=== PATIENT | male | born 1935 | race Caucasian/White ===

== ENCOUNTER 2018-07-20 11:12 | Emergency (ER) | payer MEDICARE, OTHER ==
[~2018-07-20] VITALS: Ht 185.4 cm; Wt 80.0 kg
[~2018-07-20 11:12] MED LIST: AMIO200T40 PO; ASPI-1009 PO; ATOR10TA87 PO; CALC-965 PO; CHOL100010 PO; DOCU100C43 PO; HYDR500C18 PO; METO50TA16 PO; UBID30CA11 PO
[2018-07-20 11:35] VITALS: BP 128/60
[2018-07-20] MEDS ORDERED: LIDOcaine 1%/PF 5ML 10 MG/ML VIAL IJ ONE (13:15)
== END 2018-07-20 14:20 | disposition home or self-care (01) ==
LOC: ER 11:13
DX: S61.213A Laceration without foreign body of left middle finger without damage to nail, initial encounter (principal); I25.10 Atherosclerotic heart disease of native coronary artery without angina pectoris; I25.2 Old myocardial infarction; Z95.1 Presence of aortocoronary bypass graft; Z98.890 Other specified postprocedural states; Z79.82 Long term (current) use of aspirin; Z79.899 Other long term (current) drug therapy; W26.0XXA Contact with knife, initial encounter; Y93.G1 Activity, food preparation and clean up; Y92.89 Other specified places as the place of occurrence of the external cause; Y99.8 Other external cause status
CPT/HCPCS: 12001; 99283; A6449; J2001

== ENCOUNTER 2019-01-09 07:08 | Day surgery (SDC) | payer MEDICARE, OTHER ==
[2019-01-09] VITALS (10 sets, daily range): BP systolic 97–124; BP diastolic 52–84
[~2019-01-09] VITALS: Ht 185.4 cm; Wt 85.2 kg
[2019-01-09] MEDS ORDERED: LORazepam 0.5 MG tablet PO ONE (07:40)
[2019-01-09] MEDS ORDERED: diphenhydrAMINE 25mg capsule PO ONE (07:40)
[2019-01-09] MEDS ORDERED: morphine 10mg/ml inj. IV ONE (07:40)
[2019-01-09] MEDS ORDERED: MIDAZolam 5mg/ml 2ml vial IV ONE (07:40)
[2019-01-09] MEDS ORDERED: normal saline 1000ml 1,000 ML IV SCH (07:40)
[2019-01-09] MEDS ORDERED: FURO-150 PO (08:27)
[2019-01-09] MEDS ORDERED: POTA20TA19 PO (08:28)
[2019-01-09] MEDS ORDERED: ALLO300T2 PO (08:29)
[2019-01-09] MEDS ORDERED: AMIO200T40 PO (08:30)
== END 2019-01-09 10:50 | disposition home or self-care (01) ==
LOC: SSTAY O 07:08
PROVIDERS: ATTEND Internal Medicine Cardiovascular Disease
DX: I48.0 Paroxysmal atrial fibrillation (principal); I50.30 Unspecified diastolic (congestive) heart failure; I48.92 Unspecified atrial flutter; I11.0 Hypertensive heart disease with heart failure; E78.49 Other hyperlipidemia; Z85.46 Personal history of malignant neoplasm of prostate; I25.10 Atherosclerotic heart disease of native coronary artery without angina pectoris; Z79.82 Long term (current) use of aspirin; Z79.899 Other long term (current) drug therapy; Z95.1 Presence of aortocoronary bypass graft
CPT/HCPCS: 92960; 93005; 94760; J2250; J2270; J7030

== ENCOUNTER 2019-05-16 13:13 | Inpatient (IN) | payer MEDICARE, OTHER ==
[~2019-05-16] VITALS: Ht 200.7 cm; Wt 81.1 kg
[~2019-05-16 13:13] MED LIST changes: +ALLO300T2 PO; -AMIO200T40 PO; +AMIO200T61 PO; +APIX5TAB3 PO; -ASPI-1009 PO; -CALC-965 PO; -CHOL100010 PO; -DOCU100C43 PO; +FURO-150 PO; +LEVO25TA7 PO; -UBID30CA11 PO
[2019-05-16] MEDS ORDERED: CefTRIAXone 2gm/D5W 50ml 50 ML IV ONE (13:20)
[2019-05-16] MEDS ORDERED: normal saline 1000ML IV soln IV ONE (13:20)
[2019-05-16 13:40] LABS: EOSINOPHILS % (AUTO) 0.1 % (0-6); HEMATOCRIT 37.3 % (42.0-52.0); LYMPHOCYTES # (AUTO) 0.9 X10'3 (1.1-4.8); LYMPHOCYTES % (AUTO) 1.8 % (21-51)
[2019-05-16 13:43] LABS: BASOPHILS # (AUTO) 0.2 X10'3 (0-0.2); BASOPHILS % (AUTO) 0.4 % (0-1); HEMOGLOBIN 11.1 g/dl (14.0-17.9); MEAN CORPUSCULAR HEMOGLOBIN 28.9 PG (27.0-31.0); MEAN CORPUSCULAR HGB CONC 29.6 g/dL (33.0-36.5); MEAN CORPUSCULAR VOLUME 97.3 FL (78-98); MEAN PLATELET VOLUME 16.4 FL (7.4-10.4); MONOCYTES # (AUTO) 0.4 X10'3 (0-0.9); MONOCYTES % (AUTO) 0.7 % (2-12); NEUTROPHILS # (AUTO) 50.8 X10'3 (1.8-7.7); PLATELET COUNT 102 X10'3 (140-440); RED BLOOD COUNT 3.83 X10'6 (4.70-6.10)
[2019-05-16] MEDS ORDERED: acetaminophen 325mg tablet PO ONE (13:50)
[2019-05-16 13:53] LABS: ALANINE AMINOTRANSFERASE 10 U/L (12-78); ALBUMIN 2.9 G/DL (3.4-5.0); ALBUMIN/GLOBULIN RATIO 1.1 (1.1-1.5); ALKALINE PHOSPHATASE 71 IU/L (46-116); ANION GAP 10 (8-16); ASPARTATE AMINO TRANSFERASE 61 U/L (10-37); BILIRUBIN,TOTAL 2.2 MG/DL (0.1-1.0); BLOOD UREA NITROGEN 28 MG/DL (7-18); BUN/CREATININE RATIO 19.4 (5.4-32.0); CALCIUM 7.9 MG/DL (8.5-10.1); CHLORIDE 103 MMOL/L (99-107); CREATININE 1.44 MG/DL (0.60-1.10); GLUCOSE 75 MG/DL (70-104); POTASSIUM 4.5 MMOL/L (3.5-5.1); SODIUM 140 MMOL/L (135-145); TOTAL CARBON DIOXIDE 26.9 MMOL/L (24-32); TOTAL PROTEIN 5.5 G/DL (6.4-8.2); eGFR 47 ML/MIN
[2019-05-16 13:56] LABS: PARTIAL THROMBOPLASTIN TIME 48 SECONDS (22-32)
[2019-05-16 14:00] LABS: MAGNESIUM 1.5 MG/DL (1.5-2.4)
[2019-05-16 14:05] LABS: CLARITY,URINE SLIGHTLY CLOUDY (Clear); COLOR,URINE YELLOW (Yellow); GLUCOSE, URINE NEGATIVE (Neg); KETONES,URINE TRACE mg/dl (Neg); LEUKOCYTE ESTERASE ,URINE NEGATIVE (Neg); NITRITES, URINE NEGATIVE (Neg); OCCULT BLOOD,URINE TRACE-INTACT (Neg); PROTEIN,URINE 30 mg/dl (Neg); UROBILINOGEN,URINE 0.2 E.U/dL (0.2-1.0)
[2019-05-16 14:18] LABS: WHITE BLOOD COUNT 52.4 X10'3 (4.5-11.0)
[2019-05-16 14:21] LABS: PLATELET ESTIMATE DECREASED; TOTAL CELLS COUNTED 100
[2019-05-16 14:22] LABS: ANISOCYTOSIS 3+; GIANT PLATELET FEW; HYPOCHROMASIA 1+; LARGE PLATELETS FEW; POLYCHROMASIA 2+
[2019-05-16 14:23] LABS: ELLIPTOCYTES 1+; TARGET CELLS FEW
[2019-05-16] MEDS ORDERED: vancomycin/NS 1 GM ADD-VANTAGE 250 ML IV ONE (14:25)
[2019-05-16 14:27] LABS: UA COLLECTION TYPE STRAIGHT CATH
[2019-05-16 14:28] LABS: AMORPHOUS URATES 1+; BACTERIA,URINE NONE SEEN /HPF (Neg); MUCUS STRANDS FEW /LPF (Neg); RBC,URINE 0-2 /HPF (0-2); SQUAMOUS EPITHELIAL CELL,UR FEW /LPF (FEW); WBC,URINE 0-4 /HPF (0-4)
[2019-05-16] MEDS ORDERED: normal saline 1000ml 1,000 ML IV STA (15:44)
[2019-05-16] MEDS ORDERED: METO25TA6 PO (15:55)
[2019-05-16] MEDS ORDERED: hydrocortisone sod succ/PF 100mg/2ml inj. IV ONE (16:44)
[2019-05-16] MEDS ORDERED: acetaminophen 325mg tablet PO PRN ×2 (16:45)
[2019-05-16] MEDS ORDERED: sodium phosphate inj. 15 MMOL in dextrose 5%-water 150 ML IV PRN (16:45)
[2019-05-16] MEDS ORDERED: potassium CL 10mEq/100ml bag 100 ML IV PRN (16:45)
[2019-05-16] MEDS ORDERED: sodium phosphate inj. 30 MMOL in dextrose 5%-water 250 ML IV PRN (16:45)
[2019-05-16] MEDS ORDERED: magnesium hydroxide 30ml (MOM) UD suspension PO PRN (16:45)
[2019-05-16] MEDS ORDERED: magnesium 4gm in 100ml NS 100 ML IV PRN (16:45)
[2019-05-16] MEDS ORDERED: magnesium Cl slow-release 64mg tablet PO PRN (16:45)
[2019-05-16] MEDS ORDERED: cefepime 1GM in D5W 50mL 50 ML IV ONE (16:45)
[2019-05-16] MEDS ORDERED: ipratropium/albuterol 3ml nebule NEB PRN (16:45)
[2019-05-16] MEDS ORDERED: ondansetron/PF 4mg/2ml inj IV PRN (16:45)
[2019-05-16] MEDS ORDERED: morphine 4 MG/ML inj SYRINge IV PRN (16:45)
[2019-05-16] MEDS ORDERED: magnesium 2GM in 50ml NS 50 ML IV PRN (16:45)
[2019-05-16] MEDS ORDERED: morphine 2 MG/ML inj. syringe IV PRN (16:45)
[2019-05-16] MEDS ORDERED: Neutra Phos packet PO PRN (16:45)
[2019-05-16] MEDS ORDERED: potassium Cl 20 mEq SR tablet PO PRN ×2 (16:45)
[2019-05-16] MEDS ORDERED: NORepinephrine 8mg/ 250ml NS 250 ML IV SCH (17:05)
[2019-05-16] MEDS: normal saline 1000ml 1,000 ML IV SCH ×2 (17:08→19:23)
[2019-05-16] MEDS: NORepinephrine 8mg/ 250ml NS 250 ML IV SCH ×2 (17:21→19:33)
[2019-05-16] MEDS ORDERED: vancomycin inj 500 MG in normal saline 100ml IV soln 100 ML IV ONE (17:50)
--- NOTE | 2019-05-16 17:54 | NUR ---
RECEIVED AN ORDER FOR MUKESH LLANOS FROM DR. CARRANZA.
--- NOTE | 2019-05-16 18:06 | NUR ---
patient transferred to 2013 in no apparent distress. Oriented x3. hooked up to monitor. on 2mcg of levophed and hypotensive. Levophed being titrated up. Skin check performed, foam pad placed to coccyx and patient positioned in bed.
[2019-05-16 18:30] VITALS: BP 90/40
[2019-05-16 19:00] VITALS: BP 102/43
[2019-05-16] MEDS: hydrocortisone sod succ/PF 100mg/2ml inj. IV SCH (19:33)
[2019-05-16] MEDS: heparin, porcine 5000 units/ml vial SQ SCH (19:34)
[2019-05-16] MEDS: famotidine/PF 10 mg/ml inj IV SCH (19:34)
[2019-05-16] MEDS: docusate sod 100mg capsule PO SCH (19:35)
[2019-05-16 20:00] VITALS: BP 109/47
[2019-05-16 21:00] VITALS: BP 119/48
[2019-05-16 22:00] VITALS: BP 111/46
[2019-05-16 23:00] VITALS: BP 115/40
[2019-05-16] MEDS: cefepime 1GM in D5W 50mL 50 ML IV SCH (23:46)
[2019-05-17] VITALS (24 sets, daily range): BP systolic 101–130; BP diastolic 42–65
[2019-05-17] MEDS: hydrocortisone sod succ/PF 100mg/2ml inj. IV SCH ×4 (01:15→21:11)
[2019-05-17 01:45] LABS: EOSINOPHILS % (AUTO) 0 % (0-6); HEMOGLOBIN 11.2 g/dl (14.0-17.9); RED CELL DISTRIBUTION WIDTH 21.4 % (11.5-14.5)
[2019-05-17 02:11] LABS: ALANINE AMINOTRANSFERASE 12 U/L (12-78); ALBUMIN 2.6 G/DL (3.4-5.0); ALKALINE PHOSPHATASE 60 IU/L (46-116); ANION GAP 11 (8-16); ASPARTATE AMINO TRANSFERASE 66 U/L (10-37); BILIRUBIN,TOTAL 0.9 MG/DL (0.1-1.0); BLOOD UREA NITROGEN 37 MG/DL (7-18); BUN/CREATININE RATIO 22.3 (5.4-32.0); CALCIUM 7.3 MG/DL (8.5-10.1); CHLORIDE 107 MMOL/L (99-107); CREATININE 1.66 MG/DL (0.60-1.10); GLUCOSE 122 MG/DL (70-104); MAGNESIUM 1.8 MG/DL (1.5-2.4); PHOSPHORUS 5.4 MG/DL (2.3-4.5); POTASSIUM 4.3 MMOL/L (3.5-5.1); SODIUM 141 MMOL/L (135-145); TOTAL CARBON DIOXIDE 22.9 MMOL/L (24-32); TOTAL PROTEIN 5.1 G/DL (6.4-8.2); eGFR 40 ML/MIN
--- NOTE | 2019-05-17 02:40 | NUR ---
1830..Patient in room CICU 2013. I have received report from judah WATKINS and had the opportunity to ask questions and assume patient care.
--- NOTE | 2019-05-17 02:41 | NUR ---
1900..Per MD order rebolledo cath placed x1 attempt with immediate return pink/orange urine. No difficulties with rebolledo cath placement. Family at bedside.
--- NOTE | 2019-05-17 02:42 | NUR ---
2000..Assessment as noted, denies any complaints, resting quietly.
--- NOTE | 2019-05-17 02:43 | NUR ---
0000..Continues to rest quietly, no changes noted, weaning levophed as tolerated.
[2019-05-17 03:16] LABS: BASOPHILS # (AUTO) 0.2 X10'3 (0-0.2); BASOPHILS % (AUTO) 0.2 % (0-1); HEMATOCRIT 39.1 % (42.0-52.0); LYMPHOCYTES # (AUTO) 0.6 X10'3 (1.1-4.8); LYMPHOCYTES % (AUTO) 0.8 % (21-51); MEAN CORPUSCULAR HEMOGLOBIN 28.1 PG (27.0-31.0); MEAN CORPUSCULAR HGB CONC 28.7 g/dL (33.0-36.5); MEAN CORPUSCULAR VOLUME 97.7 FL (78-98); MEAN PLATELET VOLUME 13.9 FL (7.4-10.4); MONOCYTES # (AUTO) 0.8 X10'3 (0-0.9); MONOCYTES % (AUTO) 1.1 % (2-12); NEUTROPHILS # (AUTO) 74.3 X10'3 (1.8-7.7); NEUTROPHILS % (AUTO) 97.9 % (42-75); PLATELET COUNT 88 X10'3 (140-440); RED BLOOD COUNT 4.01 X10'6 (4.70-6.10)
[2019-05-17 03:20] LABS: WHITE BLOOD COUNT 75.9 X10'3 (4.5-11.0)
[2019-05-17 04:18] LABS: TOTAL CELLS COUNTED 100
[2019-05-17 04:20] LABS: ANISOCYTOSIS 3+; PLATELET ESTIMATE DECREASED
[2019-05-17 04:22] LABS: HYPOCHROMASIA 2+; POLYCHROMASIA 1+
[2019-05-17 04:23] LABS: ELLIPTOCYTES 2+
[2019-05-17 04:24] LABS: GIANT PLATELET FEW; LARGE PLATELETS MODERATE
--- NOTE | 2019-05-17 05:14 | NUR ---
0400..Weaning levophed as tolerated, states feeling better, no other changes noted.
--- NOTE | 2019-05-17 06:17 | NUR ---
0615..Problems reprioritized. Patient report given, questions answered & plan of care reviewed with Mary Jo WATKINS.
[2019-05-17] MEDS: docusate sod 100mg capsule PO SCH ×2 (08:00→21:11)
[2019-05-17] MEDS: normal saline 1000ml 1,000 ML IV SCH ×2 (08:28→22:51)
[2019-05-17] MEDS: cefepime 1GM in D5W 50mL 50 ML IV SCH (08:28)
[2019-05-17] MEDS: vancomycin/NS 1 GM ADD-VANTAGE 250 ML IV SCH (08:33)
[2019-05-17] MEDS: famotidine/PF 10 mg/ml inj IV SCH (08:41)
[2019-05-17] MEDS: heparin, porcine 5000 units/ml vial SQ SCH ×2 (08:48→21:12)
--- NOTE | 2019-05-17 10:17 | NUR ---
Initial: Pt admit with septic shock and AMS with hx polycythemia rub verjosephine. Unable to provide protein education at this time r/t current mentation. Pt currently on heart healthy diet with documented 25/50/100% PO intake first meal. Noted that pt documented with low BMI for geriatric age at 19.0. Per height hx patient is not 79" tall but is 73-74"; updated BMI is appropriate at 22.5. LBM 05/17. No edema. Will continue to follow and monitor need for ONS. Recommendations: 1) Continue with heart healthy diet 2) Monitor need for ONS 3) Wt per rx Addendum: 05/17/19 at [address] Amended: Links added.
--- NOTE | 2019-05-17 11:59 | NUR ---
Report given to receiving RN
--- NOTE | 2019-05-17 12:25 | NUR ---
Patient in room [facility] 2013. I have received report from JUNE Rand and had the opportunity to ask questions and assume patient care. Addendum: 05/17/19 at 1237 by Roselia Carrion RN agree with julián WATKINScook chill technician
--- NOTE | 2019-05-17 15:17 | NUR ---
pt has whitish area inbetween buttocks, pt states he has had it for months, appears to be healing eschar. pictures taken. pt also has wounds on right ear post surgical
[2019-05-17] MEDS: cefepime inj. 1 GM in dextrose 5%-water 50ml 50 ML IV SCH (15:41)
--- NOTE | 2019-05-17 15:49 | NUR ---
amaury foley dc'd
[2019-05-17] MEDS ORDERED: cefepime inj. 1 GM in dextrose 5%-water 50ml 50 ML IV SCH (16:00)
--- NOTE | 2019-05-17 18:23 | NUR ---
Problems reprioritized. Patient report given, questions answered & plan of care reviewed with JUNE BURKETT.
[2019-05-17] MEDS: lactobacillus rhamnosus 10,000 MMU CELLS/CAPSULE PO SCH (21:10)
[2019-05-17] MEDS: famotidine 20mg tablet PO SCH (21:10)
[2019-05-18] VITALS (24 sets, daily range): BP systolic 95–136; BP diastolic 45–67
[2019-05-18] MEDS: cefepime inj. 1 GM in dextrose 5%-water 50ml 50 ML IV SCH ×3 (00:34→16:41)
[2019-05-18] MEDS: hydrocortisone sod succ/PF 100mg/2ml inj. IV SCH ×3 (02:59→20:00)
[2019-05-18 03:40] LABS: ALANINE AMINOTRANSFERASE 10 U/L (12-78); ALBUMIN 2.3 G/DL (3.4-5.0); ALKALINE PHOSPHATASE 47 IU/L (46-116); ANION GAP 13 (8-16); ASPARTATE AMINO TRANSFERASE 12 U/L (10-37); BILIRUBIN,TOTAL 0.6 MG/DL (0.1-1.0); BLOOD UREA NITROGEN 48 MG/DL (7-18); BUN/CREATININE RATIO 36.9 (5.4-32.0); CALCIUM 7.5 MG/DL (8.5-10.1); CHLORIDE 106 MMOL/L (99-107); GLUCOSE 130 MG/DL (70-104); POTASSIUM 4.2 MMOL/L (3.5-5.1); SODIUM 142 MMOL/L (135-145); TOTAL CARBON DIOXIDE 22.8 MMOL/L (24-32); TOTAL PROTEIN 4.6 G/DL (6.4-8.2); eGFR 52 ML/MIN
--- NOTE | 2019-05-18 06:30 | NUR ---
Patient in room CICU 2013. I have received report from Kurt WATKINS and had the opportunity to ask questions and assume patient care. Patient lying in bed with eyes closed, on room air sating 95-98%, vital signs stable no signs of distress will continue to monitor
[2019-05-18 06:31] LABS: EOSINOPHILS # (AUTO) 0.1 X10'3 (0-0.9); EOSINOPHILS % (AUTO) 0.1 % (0-6); LYMPHOCYTES # (AUTO) 0.5 X10'3 (1.1-4.8); LYMPHOCYTES % (AUTO) 0.8 % (21-51); RED BLOOD COUNT 3.79 X10'6 (4.70-6.10)
[2019-05-18 06:34] LABS: BASOPHILS # (AUTO) 0.5 X10'3 (0-0.2); BASOPHILS % (AUTO) 0.8 % (0-1); HEMATOCRIT 36.2 % (42.0-52.0); HEMOGLOBIN 10.7 g/dl (14.0-17.9); MEAN CORPUSCULAR HEMOGLOBIN 28.3 PG (27.0-31.0); MEAN CORPUSCULAR HGB CONC 29.6 g/dL (33.0-36.5); MEAN CORPUSCULAR VOLUME 95.6 FL (78-98); MEAN PLATELET VOLUME 13.9 FL (7.4-10.4); MONOCYTES # (AUTO) 0.4 X10'3 (0-0.9); MONOCYTES % (AUTO) 0.6 % (2-12); NEUTROPHILS # (AUTO) 62.9 X10'3 (1.8-7.7); NEUTROPHILS % (AUTO) 97.7 % (42-75); RED CELL DISTRIBUTION WIDTH 21.6 % (11.5-14.5)
[2019-05-18 06:44] LABS: PLATELET COUNT 69 X10'3 (140-440)
[2019-05-18 06:47] LABS: WHITE BLOOD COUNT 64.4 X10'3 (4.5-11.0)
[2019-05-18] MEDS: heparin, porcine 5000 units/ml vial SQ SCH ×2 (08:00→19:45)
[2019-05-18] MEDS: docusate sod 100mg capsule PO SCH ×2 (08:00→20:00)
[2019-05-18] MEDS: lactobacillus rhamnosus 10,000 MMU CELLS/CAPSULE PO SCH ×2 (08:01→20:00)
[2019-05-18 08:02] LABS: TOTAL CELLS COUNTED 100
[2019-05-18] MEDS: vancomycin/NS 1 GM ADD-VANTAGE 250 ML IV SCH (08:02)
[2019-05-18] MEDS: famotidine 20mg tablet PO SCH ×2 (08:02→20:00)
[2019-05-18 08:03] LABS: ANISOCYTOSIS 3+; PLATELET ESTIMATE DECREASED
[2019-05-18 08:04] LABS: ELLIPTOCYTES 3+; GIANT PLATELET FEW; HYPERSEGMENTED NEUTROPHILS 1+; LARGE PLATELETS MODERATE; POLYCHROMASIA 1+
[2019-05-18 08:05] LABS: ACANTHOCYTES 1+; TOXIC GRANULATION 2+
--- NOTE | 2019-05-18 08:15 | NUR ---
discussed with VERONICA Corrales about patients platelet count, stated to hold the heparin dose this morning
[2019-05-18] MEDS: normal saline 1000ml 1,000 ML IV SCH (14:21)
--- NOTE | 2019-05-18 16:30 | NUR ---
Patients daughter came up, updated her on her fathers status and roughly how many days he will be here based on the physicians assessment.
[2019-05-18] MEDS: NORepinephrine 8mg/ 250ml NS 250 ML IV SCH (16:45)
[2019-05-18] MEDS ORDERED: bisacodyl 10mg suppository rectal RC PRN (16:45)
--- NOTE | 2019-05-18 18:17 | NUR ---
Patient in room CICU 2011. I have received report from Beatris and had the opportunity to ask questions and assume patient care.
--- NOTE | 2019-05-18 18:17 | NUR ---
Problems reprioritized. Patient report given, questions answered & plan of care reviewed with Elina WATKINS.
--- NOTE | 2019-05-18 18:41 | NUR ---
Pt transferred to room 2012 via bed.
[2019-05-19] VITALS (18 sets, daily range): BP systolic 99–134; BP diastolic 45–70
[2019-05-19] MEDS: cefepime inj. 1 GM in dextrose 5%-water 50ml 50 ML IV SCH ×3 (00:02→16:32)
[2019-05-19 02:19] LABS: ANION GAP 8 (8-16); BLOOD UREA NITROGEN 47 MG/DL (7-18); BUN/CREATININE RATIO 38.2 (5.4-32.0); CHLORIDE 110 MMOL/L (99-107); CREATININE 1.23 MG/DL (0.60-1.10); GLUCOSE 126 MG/DL (70-104); SODIUM 141 MMOL/L (135-145); TOTAL CARBON DIOXIDE 22.7 MMOL/L (24-32)
[2019-05-19 02:20] LABS: ALANINE AMINOTRANSFERASE 7 U/L (12-78); ALBUMIN 2.1 G/DL (3.4-5.0); ALKALINE PHOSPHATASE 44 IU/L (46-116); ASPARTATE AMINO TRANSFERASE 7 U/L (10-37); BILIRUBIN,TOTAL 0.4 MG/DL (0.1-1.0); CALCIUM 7.4 MG/DL (8.5-10.1); MAGNESIUM 2.1 MG/DL (1.5-2.4); PHOSPHORUS 3.4 MG/DL (2.3-4.5); TOTAL PROTEIN 4.3 G/DL (6.4-8.2); eGFR 56 ML/MIN
[2019-05-19 02:21] LABS: BASOPHILS # (AUTO) 0.1 X10'3 (0-0.2); EOSINOPHILS % (AUTO) 0 % (0-6); LYMPHOCYTES # (AUTO) 0.3 X10'3 (1.1-4.8); MEAN CORPUSCULAR HGB CONC 29.2 g/dL (33.0-36.5)
[2019-05-19 02:27] LABS: BASOPHILS % (AUTO) 0.2 % (0-1); HEMATOCRIT 33.7 % (42.0-52.0); HEMOGLOBIN 9.9 g/dl (14.0-17.9); LYMPHOCYTES % (AUTO) 0.6 % (21-51); MEAN CORPUSCULAR HEMOGLOBIN 28.4 PG (27.0-31.0); MEAN CORPUSCULAR VOLUME 97.3 FL (78-98); MEAN PLATELET VOLUME 11.5 FL (7.4-10.4); MONOCYTES # (AUTO) 0.7 X10'3 (0-0.9); MONOCYTES % (AUTO) 1.2 % (2-12); NEUTROPHILS # (AUTO) 53.5 X10'3 (1.8-7.7); RED BLOOD COUNT 3.47 X10'6 (4.70-6.10); RED CELL DISTRIBUTION WIDTH 22.1 % (11.5-14.5)
[2019-05-19] MEDS: normal saline 1000ml 1,000 ML IV SCH (05:06)
[2019-05-19 05:59] LABS: PLATELET COUNT 62 X10'3 (140-440)
[2019-05-19 06:02] LABS: WHITE BLOOD COUNT 54.7 X10'3 (4.5-11.0)
--- NOTE | 2019-05-19 06:02 | NUR ---
Notified primary RN, A Forcen, regarding patient's critical WBC with AM labs.
[2019-05-19 06:04] LABS: ACANTHOCYTES 1+; ANISOCYTOSIS 3+; ELLIPTOCYTES 3+; PLATELET ESTIMATE DECREASED; TOTAL CELLS COUNTED 100
[2019-05-19 06:05] LABS: LARGE PLATELETS MODERATE; TOXIC GRANULATION 2+
[2019-05-19 06:06] LABS: POIKILOCYTOSIS 1+
--- NOTE | 2019-05-19 06:32 | NUR ---
Patient in room CICU 2011. I have received report from Elina WATKINS and had the opportunity to ask questions and assume patient care.
[2019-05-19] MEDS: famotidine 20mg tablet PO SCH ×2 (07:27→20:41)
[2019-05-19] MEDS: lactobacillus rhamnosus 10,000 MMU CELLS/CAPSULE PO SCH ×2 (07:27→20:41)
[2019-05-19] MEDS: hydrocortisone sod succ/PF 100mg/2ml inj. IV SCH ×2 (07:27→20:40)
[2019-05-19] MEDS: docusate sod 100mg capsule PO SCH ×2 (07:29→20:40)
[2019-05-19] MEDS: vancomycin/NS 1 GM ADD-VANTAGE 250 ML IV SCH (08:32)
--- NOTE | 2019-05-19 10:35 | NUR ---
Dr. Shook rounded on patient with multidisciplinary team. Orders were given to transfer patient to medical unit without telemetry. DC central line and stop fluids of NS at 75 ml/hr.
--- NOTE | 2019-05-19 13:07 | NUR ---
PRESSURE ULCER EDUCATION: DEFINITION: A pressure ulcer is an area of skin that breaks down when you stay in one position too long. The constant pressure against the skin reduces the blood flow to that area and the affected tissue dies. CAUSES: "Being bedridden or in a wheelchair "Fragile skin "Having a chronic condition, such as diabetes or vascular disease "Inability to move certain parts of your body without assistance "Older age "Incontinence of urine or stool SYMPTOMS: "A reddened area that DOES NOT turn white when pressed on - this can be the beginning of a pressure ulcer "A blister, deep sore or a crater - these can be advanced pressure ulcers FIRST AID: "Relieve the pressure on this area "Keep the area clean and dry "Call your primary doctor if you see any of the above symptoms "DO NOT massage the area "DO NOT use a donut shaped or ring shaped pillow- these actually interfere with the blood flow and cause complications PREVENTION: "Check for pressure ulcers everyday "Change position at least every two hours to relieve pressure "Use items that help relieve pressure- pillows, sheepskin, foam padding, and powders. "Keep skin clean and dry "Eat healthy well balanced meals "Exercise daily IF YOU SEE ANY OF THESE SYMPTOMS WHILE IN THE HOSPITAL - TELL YOUR NURSE IMMEDIATELY. IF YOU SEE ANY OF THESE SYMPTOMS WHILE AT HOME OR HAVE ANY QUESTIONS OR CONCERNS ABOUT PRESSURE ULCERS - CALL YOUR PRIMARY DOCTOR IMMEDIATELY. Addendum: 05/19/19 at 1307 by Goldy Cornejo RN Amended: Links added.
[2019-05-19] MEDS: amiodarone 200mg tablet PO SCH (13:47)
[2019-05-19] MEDS: allopurinol 300 MG tablet PO SCH (13:51)
[2019-05-19] MEDS: furosemide 20MG tablet PO SCH (13:51)
--- NOTE | 2019-05-19 14:15 | NUR ---
Report received from [facility] RN, Toy.
--- NOTE | 2019-05-19 14:30 | NUR ---
Report given to Yin RN, Surgical. Patient to be transferred to [facility] with belongings.
--- NOTE | 2019-05-19 14:40 | NUR ---
[facility]
--- NOTE | 2019-05-19 18:35 | NUR ---
Problems reprioritized. Patient report given, questions answered & plan of care reviewed with JUNE Wade & JUNE Delacruz.
--- NOTE | 2019-05-19 19:14 | NUR ---
Patient in room [facility] 349. I have received report from Yin WATKINS and had the opportunity to ask questions and assume patient care.
--- NOTE | 2019-05-19 20:09 | NUR ---
PAGER ID: [phone] MESSAGE: [id number] Timmy Caldwell. Dr. Leong restarted Eliquis for tonight, Plt count 62. Is it okay to give? Sheri WATKINS [phone]
[2019-05-19] MEDS: metoprolol tartrate 25mg tablet PO SCH (20:41)
[2019-05-19] MEDS: apixaban 5mg tablet PO SCH (20:41)
[2019-05-19] MEDS: atorvastatin 10mg tablet PO SCH (20:41)
[2019-05-20] VITALS: BP 117/55
[2019-05-20] MEDS: cefepime inj. 1 GM in dextrose 5%-water 50ml 50 ML IV SCH ×3 (00:16→15:18)
--- NOTE | 2019-05-20 06:31 | NUR ---
Problems reprioritized. Patient report given, questions answered & plan of care reviewed with Nanci WATKINS.
[2019-05-20 07:28] VITALS: BP 101/68
[2019-05-20] MEDS ORDERED: VANCOMYCIN LEVEL IV ONE (07:30)
[2019-05-20] MEDS: docusate sod 100mg capsule PO SCH ×2 (07:45→20:47)
[2019-05-20] MEDS: allopurinol 300 MG tablet PO SCH (07:45)
[2019-05-20] MEDS: amiodarone 200mg tablet PO SCH ×2 (07:46→11:57)
[2019-05-20] MEDS: lactobacillus rhamnosus 10,000 MMU CELLS/CAPSULE PO SCH ×2 (07:46→20:47)
[2019-05-20] MEDS: metoprolol tartrate 25mg tablet PO SCH ×2 (07:48→20:47)
[2019-05-20] MEDS: apixaban 5mg tablet PO SCH ×2 (07:49→20:52)
[2019-05-20] MEDS: famotidine 20mg tablet PO SCH ×2 (07:50→20:47)
[2019-05-20] MEDS: levoTHYROXINE 25mcg tablet PO SCH (07:51)
[2019-05-20] MEDS: furosemide 20MG tablet PO SCH (07:52)
[2019-05-20] MEDS: hydrocortisone sod succ/PF 100mg/2ml inj. IV SCH (08:10)
[2019-05-20 09:16] LABS: BASOPHILS # (AUTO) 0.2 X10'3 (0-0.2); BASOPHILS % (AUTO) 0.4 % (0-1); EOSINOPHILS # (AUTO) 0.5 X10'3 (0-0.9); MONOCYTES # (AUTO) 0.2 X10'3 (0-0.9)
[2019-05-20 09:21] LABS: EOSINOPHILS % (AUTO) 1.2 % (0-6); HEMOGLOBIN 10.9 g/dl (14.0-17.9); LYMPHOCYTES # (AUTO) 0.5 X10'3 (1.1-4.8); LYMPHOCYTES % (AUTO) 1.2 % (21-51); MEAN CORPUSCULAR HEMOGLOBIN 28.6 PG (27.0-31.0); MEAN CORPUSCULAR HGB CONC 28.6 g/dL (33.0-36.5); MEAN CORPUSCULAR VOLUME 99.8 FL (78-98); MONOCYTES % (AUTO) 0.4 % (2-12); NEUTROPHILS # (AUTO) 40.1 X10'3 (1.8-7.7); NEUTROPHILS % (AUTO) 96.8 % (42-75); RED BLOOD COUNT 3.81 X10'6 (4.70-6.10); RED CELL DISTRIBUTION WIDTH 21.4 % (11.5-14.5)
[2019-05-20 09:23] LABS: ALANINE AMINOTRANSFERASE 15 U/L (12-78); ALBUMIN 2.5 G/DL (3.4-5.0); ALBUMIN/GLOBULIN RATIO 1.1 (1.1-1.5); ALKALINE PHOSPHATASE 48 IU/L (46-116); ASPARTATE AMINO TRANSFERASE 9 U/L (10-37); BILIRUBIN,TOTAL 0.4 MG/DL (0.1-1.0); BLOOD UREA NITROGEN 37 MG/DL (7-18); BUN/CREATININE RATIO 34.3 (5.4-32.0); CALCIUM 7.9 MG/DL (8.5-10.1); CHLORIDE 111 MMOL/L (99-107); CREATININE 1.08 MG/DL (0.60-1.10); GLUCOSE 122 MG/DL (70-104); PHOSPHORUS 2.2 MG/DL (2.3-4.5); POTASSIUM 3.6 MMOL/L (3.5-5.1); TOTAL CARBON DIOXIDE 26.1 MMOL/L (24-32); TOTAL PROTEIN 4.8 G/DL (6.4-8.2); eGFR 65 ML/MIN
[2019-05-20 09:34] LABS: ANION GAP 5 (8-16); SODIUM 142 MMOL/L (135-145); VANCOMYCIN,TROUGH 9.5 UG/ML (6.0-14.0)
[2019-05-20] MEDS ORDERED: vancomycin/NS 1 GM ADD-VANTAGE 250 ML IV SCH (10:00)
[2019-05-20 10:37] LABS: PLATELET COUNT 66 X10'3 (140-440)
[2019-05-20 10:42] LABS: WHITE BLOOD COUNT 41.4 X10'3 (4.5-11.0)
[2019-05-20 10:52] LABS: PLATELET ESTIMATE DECREASED; TOTAL CELLS COUNTED 100
[2019-05-20 10:53] LABS: ACANTHOCYTES 1+; ANISOCYTOSIS 3+; ELLIPTOCYTES 3+; POIKILOCYTOSIS 1+; TOXIC GRANULATION 2+
[2019-05-20 10:54] LABS: HYPERSEGMENTED NEUTROPHILS FEW; TOXIC VACUOLATION FEW
--- NOTE | 2019-05-20 11:00 | NUR ---
Wound consult: Per 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 Emiliano 22. Pt currently on heart healthy diet with documented 75-100% PO intake meeting nutrient needs. No further intervention warranted at this time. [facility] 05/19. Will continue to follow. Recommendations: 1) Continue with heart healthy diet 2) Monitor need for ONS 3) Wt per rx Addendum: 05/20/19 at [address] Amended: Links added.
[2019-05-20 11:44] VITALS: BP 115/55
--- NOTE | 2019-05-20 18:22 | NUR ---
Received report from JUNE Christine. Patient is awake and alert on room air, in no apparent distress. Call light and items of frequent use within reach. Visitor at bedside. Will continue to monitor.
--- NOTE | 2019-05-20 18:51 | NUR ---
Report given to [facility] nurse.
[2019-05-20 20:00] VITALS: BP 113/60
[2019-05-20] MEDS: atorvastatin 10mg tablet PO SCH (20:46)
[2019-05-21] VITALS: BP 106/48
[2019-05-21] MEDS: cefepime inj. 1 GM in dextrose 5%-water 50ml 50 ML IV SCH ×2 (00:39→07:34)
[2019-05-21 05:28] LABS: ALANINE AMINOTRANSFERASE 17 U/L (12-78); ALBUMIN 2.5 G/DL (3.4-5.0); ALBUMIN/GLOBULIN RATIO 1.2 (1.1-1.5); ALKALINE PHOSPHATASE 50 IU/L (46-116); ANION GAP 10 (8-16); ASPARTATE AMINO TRANSFERASE 11 U/L (10-37); BILIRUBIN,TOTAL 0.4 MG/DL (0.1-1.0); BLOOD UREA NITROGEN 32 MG/DL (7-18); BUN/CREATININE RATIO 32.7 (5.4-32.0); CHLORIDE 113 MMOL/L (99-107); CREATININE 0.98 MG/DL (0.60-1.10); GLUCOSE 83 MG/DL (70-104); MAGNESIUM 2.1 MG/DL (1.5-2.4); PHOSPHORUS 2.2 MG/DL (2.3-4.5); POTASSIUM 3.9 MMOL/L (3.5-5.1); SODIUM 146 MMOL/L (135-145); TOTAL CARBON DIOXIDE 23.2 MMOL/L (24-32); TOTAL PROTEIN 4.6 G/DL (6.4-8.2); eGFR 73 ML/MIN
--- NOTE | 2019-05-21 06:27 | NUR ---
Problems reprioritized. Patient report given, questions answered & plan of care reviewed with JUNE Christine.
[2019-05-21 06:37] LABS: HEMATOCRIT 39.2 % (42.0-52.0); HEMOGLOBIN 11.1 g/dl (14.0-17.9); MEAN CORPUSCULAR HEMOGLOBIN 28.1 PG (27.0-31.0); MEAN CORPUSCULAR HGB CONC 28.4 g/dL (33.0-36.5); MEAN CORPUSCULAR VOLUME 98.8 FL (78-98); MEAN PLATELET VOLUME 13.8 FL (7.4-10.4); PLATELET COUNT 78 X10'3 (140-440); RED BLOOD COUNT 3.97 X10'6 (4.70-6.10); RED CELL DISTRIBUTION WIDTH 21.2 % (11.5-14.5)
[2019-05-21 07:26] VITALS: BP 125/62
[2019-05-21] MEDS: metoprolol tartrate 25mg tablet PO SCH (07:40)
[2019-05-21] MEDS: furosemide 20MG tablet PO SCH (07:40)
[2019-05-21] MEDS: amiodarone 200mg tablet PO SCH (07:40)
[2019-05-21] MEDS: famotidine 20mg tablet PO SCH (07:40)
[2019-05-21] MEDS: lactobacillus rhamnosus 10,000 MMU CELLS/CAPSULE PO SCH (07:40)
[2019-05-21] MEDS: levoTHYROXINE 25mcg tablet PO SCH (07:40)
[2019-05-21] MEDS: docusate sod 100mg capsule PO SCH (07:40)
[2019-05-21] MEDS: allopurinol 300 MG tablet PO SCH (07:40)
[2019-05-21] MEDS: apixaban 5mg tablet PO SCH (08:00)
[2019-05-21] MEDS ORDERED: hydrocortisone sod succ/PF 100mg/2ml inj. IV SCH (08:00)
[2019-05-21 08:02] LABS: WHITE BLOOD COUNT 37.4 X10'3 (4.5-11.0)
--- NOTE | 2019-05-21 08:05 | NUR ---
JUNE Christine, notified of pt's WBC =37.4 per lab this am.
[2019-05-21] MEDS ORDERED: CEPH-572 PO (09:27)
[2019-05-21 09:40] LABS: ANISOCYTOSIS 3+; ELLIPTOCYTES 3+; PLATELET ESTIMATE DECREASED; POIKILOCYTOSIS 3+; SCHISTOCYTES FEW; TOTAL CELLS COUNTED 100
[2019-05-21 09:41] LABS: POLYCHROMASIA FEW
[2019-05-21 09:44] LABS: SPHEROCYTES FEW; TOXIC GRANULATION 2+
[2019-05-21 09:45] LABS: LARGE PLATELETS FEW
[2019-05-21 11:00] VITALS: BP 122/54
--- NOTE | 2019-05-21 12:04 | NUR ---
Patient discharged on nursing end, waiting on ride from son.
--- NOTE | 2019-05-21 12:11 | NUR ---
WBC 37.4 Improvement, no notification to MD per protocol
--- NOTE | 2019-05-21 13:07 | NUR ---
Patient discharged. WC by staff to lobby with family. A&O x4. Stable VSS
[2019-05-21] MEDS ORDERED: VANCOMYCIN LEVEL IV ONE (21:30)
== END 2019-05-21 13:05 | disposition home or self-care (01) | DRG 871 ==
LOC: ER 13:14 → CICU 2S 17:56 → SUR 3N 05-19 14:41
PROVIDERS: ADMIT Internal Medicine Critical Care Medicine; ATTEND Internal Medicine Critical Care Medicine
PROC: 02HV33Z Insertion of Infusion Device into Superior Vena Cava, Percutaneous Approach (ICD-10-PCS; principal; 2019-05-16)
DX: A41.9 Sepsis, unspecified organism (principal); R65.21 Severe sepsis with septic shock; G93.41 Metabolic encephalopathy; L03.116 Cellulitis of left lower limb; L03.314 Cellulitis of groin; N17.9 Acute kidney failure, unspecified; C94.6 Myelodysplastic disease, not elsewhere classified; D45 Polycythemia vera; R09.02 Hypoxemia; D69.6 Thrombocytopenia, unspecified; Z60.2 Problems related to living alone; I25.10 Atherosclerotic heart disease of native coronary artery without angina pectoris; R74.8 Abnormal levels of other serum enzymes; I50.9 Heart failure, unspecified; I25.2 Old myocardial infarction; Z95.1 Presence of aortocoronary bypass graft; Z79.899 Other long term (current) drug therapy
CPT/HCPCS: 36415; 70450; 71045; 71250; 74176; 76937; 80053; 80202; 81001; 83605; 83735; 83880; 84100; 84145; 84443; 84484; 85025; 85610; 85730; 87040; 87081; 93005; 93970; 94760; 96365; 96367; 96375; 97110; 97116; 97161; 97530; 99285; G0378; J0692; J0696; J1644; J1720; J3370; J3490; J7060

== ENCOUNTER 2019-07-19 18:36 | Emergency (ER) | payer MEDICARE, OTHER ==
[~2019-07-19] VITALS: Ht 188 cm; Wt 70.0 kg
[~2019-07-19 18:36] MED LIST changes: -HYDR500C18 PO; +METO25TA6 PO; -METO50TA16 PO
[2019-07-19] MEDS ORDERED: AMOX500C42 PO (18:54)
[2019-07-19] MEDS ORDERED: FERR325T7 PO (18:54)
[2019-07-19] MEDS ORDERED: HYDR500C2 PO (18:54)
[2019-07-19] MEDS ORDERED: LIDOcaine 1% 30ml preserv. free vial IJ ONE (19:50)
[2019-07-19 20:30] VITALS: BP 120/63
== END 2019-07-19 20:32 | disposition home or self-care (01) ==
LOC: ER 18:36
DX: S91.115A Laceration without foreign body of left lesser toe(s) without damage to nail, initial encounter (principal); I25.10 Atherosclerotic heart disease of native coronary artery without angina pectoris; I50.9 Heart failure, unspecified; I25.2 Old myocardial infarction; Z95.1 Presence of aortocoronary bypass graft; Z98.890 Other specified postprocedural states; Z79.2 Long term (current) use of antibiotics; Z79.899 Other long term (current) drug therapy; W26.0XXA Contact with knife, initial encounter; Y93.89 Activity, other specified; Y92.89 Other specified places as the place of occurrence of the external cause; Y99.8 Other external cause status
CPT/HCPCS: 12001; 99284; J2001

== ENCOUNTER 2019-08-04 15:04 | Emergency (ER) | payer MEDICARE, OTHER ==
[~2019-08-04] VITALS: Ht 190.5 cm; Wt 70.0 kg
[~2019-08-04 15:04] MED LIST changes: +AMOX500C42 PO; +FERR325T7 PO; +HYDR500C2 PO
[2019-08-04 15:14] VITALS: BP 116/50
== END 2019-08-04 16:33 | disposition left against medical advice (07) ==
LOC: ER 15:05
DX: S91.115D Laceration without foreign body of left lesser toe(s) without damage to nail, subsequent encounter (principal); Z53.21 Procedure and treatment not carried out due to patient leaving prior to being seen by health care provider; X58.XXXD Exposure to other specified factors, subsequent encounter

== ENCOUNTER 2020-01-01 21:13 | Emergency (ER) | payer MEDICARE, OTHER ==
[~2020-01-01] VITALS: Ht 188 cm; Wt 79.5 kg
[2020-01-01 21:32] VITALS: BP 116/51
== END 2020-01-01 22:32 | disposition home or self-care (01) ==
LOC: ER 21:15
DX: S51.011A Laceration without foreign body of right elbow, initial encounter (principal); I25.10 Atherosclerotic heart disease of native coronary artery without angina pectoris; I50.9 Heart failure, unspecified; I25.2 Old myocardial infarction; Z95.1 Presence of aortocoronary bypass graft; Z98.890 Other specified postprocedural states; Z60.2 Problems related to living alone; Z72.89 Other problems related to lifestyle; W18.39XA Other fall on same level, initial encounter; Y93.89 Activity, other specified; Y92.89 Other specified places as the place of occurrence of the external cause; Y99.8 Other external cause status
CPT/HCPCS: 12002; 99284

== ENCOUNTER 2020-09-12 12:01 | Emergency (ER) | payer MEDICARE, OTHER ==
[~2020-09-12] VITALS: Ht 190.5 cm; Wt 85.5 kg
[~2020-09-12 12:01] MED LIST changes: +AMIO200T39 PO; -AMIO200T61 PO; +CHOL100062 PO; +DOXY-224 PO; +LEVO50TA66 PO; +RUXO10TA PO; +TERB250T4 PO
[2020-09-12 13:56] LABS: BASOPHILS # (AUTO) 0.2 X10'3 (0-0.2); BASOPHILS % (AUTO) 1.2 % (0-1); EOSINOPHILS # (AUTO) 0.3 X10'3 (0-0.9); HEMOGLOBIN 9.9 g/dl (14.0-17.9); LYMPHOCYTES # (AUTO) 0.7 X10'3 (1.1-4.8); MONOCYTES # (AUTO) 0.2 X10'3 (0-0.9); NEUTROPHILS # (AUTO) 14.1 X10'3 (1.8-7.7); RED CELL DISTRIBUTION WIDTH 26.6 % (11.5-14.5); WHITE BLOOD COUNT 15.5 X10'3 (4.5-11.0)
[2020-09-12 13:57] LABS: HEMATOCRIT 31.7 % (42.0-52.0); LYMPHOCYTES % (AUTO) 4.5 % (21-51); MEAN CORPUSCULAR HEMOGLOBIN 27.4 PG (27.0-31.0); MEAN CORPUSCULAR HGB CONC 31.4 g/dL (33.0-36.5); MEAN CORPUSCULAR VOLUME 87.4 FL (78-98); MONOCYTES % (AUTO) 1.4 % (2-12); NEUTROPHILS % (AUTO) 90.9 % (42-75); PLATELET COUNT 269 X10'3 (140-440); RED BLOOD COUNT 3.63 X10'6 (4.70-6.10)
[2020-09-12 14:00] VITALS: BP 113/49
[2020-09-12 14:13] LABS: ALANINE AMINOTRANSFERASE 18 U/L (12-78); ALBUMIN 3.8 G/DL (3.4-5.0); ALBUMIN/GLOBULIN RATIO 1.5 (1.1-1.5); ALKALINE PHOSPHATASE 55 IU/L (46-116); ANION GAP 6 (8-16); ASPARTATE AMINO TRANSFERASE 17 U/L (10-37); BILIRUBIN,TOTAL 0.8 MG/DL (0.1-1.0); BLOOD UREA NITROGEN 38 MG/DL (7-18); CALCIUM 8.5 MG/DL (8.5-10.1); CHLORIDE 102 MMOL/L (99-107); CREATININE 1.81 MG/DL (0.60-1.10); GLUCOSE 97 MG/DL (70-104); POTASSIUM 5.1 MMOL/L (3.5-5.1); SODIUM 135 MMOL/L (135-145); TOTAL CARBON DIOXIDE 27.4 MMOL/L (24-32); TOTAL PROTEIN 6.3 G/DL (6.4-8.2); eGFR 36 ML/MIN
[2020-09-12 14:28] LABS: TOTAL CELLS COUNTED 100
[2020-09-12 14:29] LABS: ANISOCYTOSIS 3+; PLATELET ESTIMATE NORMAL
[2020-09-12 14:31] LABS: ELLIPTOCYTES 3+; LARGE PLATELETS FEW; POLYCHROMASIA FEW; SCHISTOCYTES 1+
== END 2020-09-12 15:12 | disposition home or self-care (01) ==
LOC: ER 12:02
DX: S90.111A Contusion of right great toe without damage to nail, initial encounter (principal); M25.462 Effusion, left knee; R00.1 Bradycardia, unspecified; I25.10 Atherosclerotic heart disease of native coronary artery without angina pectoris; I50.9 Heart failure, unspecified; I25.2 Old myocardial infarction; Z95.1 Presence of aortocoronary bypass graft; Z79.899 Other long term (current) drug therapy; W01.0XXA Fall on same level from slipping, tripping and stumbling without subsequent striking against object, initial encounter; Y93.01 Activity, walking, marching and hiking; Y92.89 Other specified places as the place of occurrence of the external cause; Y99.9 Unspecified external cause status
CPT/HCPCS: 36415; 71045; 73564; 73630; 80053; 83880; 84484; 85007; 85025; 93005; 99285